=== PATIENT | female | born 1990 | race Caucasian/White ===

== ENCOUNTER → 2025-03-29 13:11 | Outpatient (CLI) | payer OTHER, SELFPAY ==
[2025-03-29 13:51] LABS: Add Manual Diff / Slide Review NO; Hematocrit 38.7 % (36-46); Hemoglobin 13.3 g/dL (12.0-16.0); Lymphocytes Absolute Auto 1900 /uL (1100-4500); Mean Corpuscular HGB Conc 34.3 % (30-36); Mean Corpuscular Hemoglobin 30.1 PG (26-34); Mean Corpuscular Volume 87.7 fL (80-100); Platelet Count 242 X10^3/uL (150-400)
[2025-03-29 14:03] LABS: HEMOLYSIS 24 (0-50); Iron 61 ug/dL (37-170)
[2025-03-29 14:04] LABS: Blood Urea Nitrogen 7 mg/dL (7-17); Calcium 9.5 mg/dL (8.4-10.2); Carbon Dioxide 23 mmol/L (22-32); Chloride 105 mmol/L (98-107); Estimated Glomerular Filt Rate > 60 mL/min (>60); Glucose 69 mg/dL (70-99); HEMOLYSIS < 15 (0-50); Potassium 3.9 mmol/L (3.4-5.1); Sodium 137 mmol/L (137-145)
[2025-03-29 14:17] LABS: Percent Iron Saturation 18 % (15-50); Total Iron Binding Capacity 334 ug/dL (265-497); Transferrin 279 mg/dL (206-381)
[2025-03-29 14:21] LABS: Vitamin D 25 Hydroxy (D3) 21.1 ng/mL (30.0-100.0)
[2025-03-29 14:40] LABS: Ferritin 13 ng/mL (6-137)
[2025-03-29 14:55] LABS: Vitamin B12 360 pg/mL (239-931)
== END ==
PROVIDERS: PCP Nurse Practitioner Family; Referring Provider Nurse Practitioner Family; Visit Provider Nurse Practitioner Family
DX: Z78.9 Other specified health status (principal); Z86.39 Personal history of other endocrine, nutritional and metabolic disease; Z13.21 Encounter for screening for nutritional disorder
CPT/HCPCS: 36415; 80048; 82306; 82607; 82728; 83540; 83550; 85025